=== PATIENT | male | born 1975 | race Caucasian/White ===

== ENCOUNTER 2022-05-22 23:05 | Emergency (ER) | payer OTHER ==
[2022-05-22] MEDS ORDERED: hydrALAZINE 10 MG Tab PO STA (23:49)
[2022-05-22 23:52] LABS: ESTIMATED GFR 83 mL/min (>60); TROPONIN I HIGH SENSITIVITY 7.1 pg/mL (<=60.3)
[2022-05-23] MEDS ORDERED: hydrALAZINE 10 MG Tab PO STA (00:46)
[2022-05-23] MEDS ORDERED: Alum Hydrox/Mag Hydrox/Simeth 15 ML, Lidocaine 2% 15 ML PO ONE ×2 (00:50)
== END 2022-05-23 01:27 ==
LOC: JP.ED 23:05
DX: R91.1 Solitary pulmonary nodule (principal); R10.13 Epigastric pain; I10 Essential (primary) hypertension
CPT/HCPCS: 36415; 71046; 80053; 84484; 85025; 85379; 86140; 93005; 99285; A9270

== ENCOUNTER 2022-05-30 19:40 | Emergency (ER) | payer OTHER ==
[2022-05-30] MEDS ORDERED: hydrALAZINE 20 MG/ML SDV IVPUSH ONE (20:54)
[2022-05-30 21:32] LABS: ESTIMATED GFR 93 mL/min (>60); TROPONIN I HIGH SENSITIVITY 4.1 pg/mL (<=60.3)
== END 2022-05-30 23:21 ==
LOC: JP.ED 19:40
DX: G44.52 New daily persistent headache (NDPH) (principal); I10 Essential (primary) hypertension; Z79.899 Other long term (current) drug therapy; Z87.891 Personal history of nicotine dependence
CPT/HCPCS: 36415; 80053; 80305; 81001; 84484; 85025; 96374; 99284; J0360

== ENCOUNTER 2022-07-10 04:14 | Emergency (ER) | payer OTHER ==
[2022-07-10] MEDS ORDERED: Metoprolol Tartrate 50 MG Tab PO ONE (05:02)
[2022-07-10 05:39] LABS: ESTIMATED GFR 93 mL/min (>60)
== END 2022-07-10 06:30 | disposition home or self-care (01) ==
LOC: JP.ED 04:14
DX: I10 Essential (primary) hypertension (principal); Z79.899 Other long term (current) drug therapy
CPT/HCPCS: 36415; 70450; 80053; 85025; 99284; A9270

== ENCOUNTER 2023-08-04 16:27 | Emergency (ER) | payer OTHER ==
[2023-08-04] MEDS ORDERED: Ketorolac 15 MG/ML SDV IVPUSH ONE (18:02)
[2023-08-04] MEDS ORDERED: Sodium Chloride 0.9% 10 ML Syringe FLUSH PRN (18:02)
[2023-08-04 18:12] LABS: BASOPHILS ABSOLUTE AUTO 0.04 K/uL (0.00-0.10); BASOPHILS PERCENT AUTO 0.3 % (0.1-1.3); EOSINOPHILS ABSOLUTE AUTO 0.18 K/uL (0.00-0.40); EOSINOPHILS PERCENT AUTO 1.1 % (0.0-5.4); HEMATOCRIT 48.8 % (38.4-49.7); HEMOGLOBIN 17.5 g/dL (12.9-16.9); IMMATURE GRAN ABSOLUTE AUTO 0.04 K/uL (0.00-0.23); IMMATURE GRAN PERCENT AUTO 0.3 % (0.0-0.7); LYMPHOCYTES ABSOLUTE AUTO 2.02 K/uL (0.8-3.3); LYMPHOCYTES PERCENT AUTO 12.7 % (11.4-47.7); MEAN CORPUSCULAR HEMOGLOBIN 31.4 pg (31.6-35.5); MEAN CORPUSCULAR HGB CONC 35.9 g/dL (31.6-35.5); MEAN CORPUSCULAR VOLUME 87.5 fL (81.4-99.0); MONOCYTES ABSOLUTE AUTO 1.35 K/uL (0.20-0.90); MONOCYTES PERCENT AUTO 8.5 % (3.3-12.6); NEUTROPHILS ABSOLUTE AUTO 12.28 K/uL (1.0-7.6); NEUTROPHILS PERCENT AUTO 77.1 % (40.0-78.1); PLATELET COUNT,PLT 196 K/uL (130-375); RED BLOOD CELL COUNT 5.58 M/uL (4.14-5.76); WHITE BLOOD CELL COUNT,WBC 15.9 K/uL (3.2-11.0)
[2023-08-04 18:36] LABS: A/G RATIO 1.1 (1.2-2.2); ALANINE AMINOTRANSFERASE,ALT 27 U/L (12-78); ALKALINE PHOSPHATASE 60 U/L (46-116); ANION GAP 9.7 mmol/L (5.0-14.0); ASPARTATE AMNIOTRANSFERASE,AST 18 U/L (15-37); BILIRUBIN TOTAL 0.7 mg/dL (0.2-1.0); BLOOD UREA NITROGEN,BUN 20 mg/dL (7-18); C-REACTIVE PROTEIN 0.07 mg/dL (0.0-0.3); CALCIUM 9.1 mg/dL (8.5-10.1); CARBON DIOXIDE,CO2 27 mmol/L (21-32); CHLORIDE,CL 103 mmol/L (100-108); CREATININE 0.9 mg/dL (0.8-1.3); EST CRCL DRUG DOSING (CG) 115.44 mL/min; ESTIMATED GFR 105 mL/min (>60); GLUCOSE RANDOM 115 mg/dL (74-106); POTASSIUM,K 3.7 mmol/L (3.6-5.2); PROTEIN TOTAL,TP 7.6 g/dL (6.4-8.2); SODIUM,NA 140 mmol/L (140-148); TROPONIN I HIGH SENSITIVITY < 4.0 pg/mL (<=60.3)
[2023-08-04 18:51] LABS: APPEARANCE,URINE CLEAR (CLEAR); BILIRUBIN,URINE NEGATIVE (NEGATIVE); COLOR,URINE YELLOW (YELLOW); GLUCOSE,URINE NEGATIVE (NEGATIVE); KETONES,URINE NEGATIVE (NEGATIVE); LEUKOCYTE ESTERASE,URINE NEGATIVE (NEGATIVE); NITRITE,URINE NEGATIVE (NEGATIVE); OCCULT BLOOD,URINE NEGATIVE (NEGATIVE); PH,URINE 8.5 (5.0-8.0); PROTEIN,URINE NEGATIVE (NEGATIVE); UROBILINOGEN,URINE 0.2 EU/dL (0.2-1.0)
[2023-08-04 18:56] LABS: AMORPHOUS SEDIMENT,URINE NOT SEEN; BACTERIA,URINE RARE; EPITHELIAL CELLS,URINE RARE; MUCUS,URINE NOT SEEN; RBC,URINE NOT SEEN (0-5); WBC,URINE NOT SEEN (0-5)
[2023-08-04] MEDS ORDERED: Iopamidol 612 MG/ML 100 ML Bottle IV SCH (19:15)
[2023-08-04] MEDS ORDERED: Sodium Chloride 0.9% 50 ML IV SCH (19:15)
== END 2023-08-04 20:30 ==
LOC: JP.ED 16:27
DX: R07.89 Other chest pain (principal); K59.00 Constipation, unspecified; I10 Essential (primary) hypertension; Z79.899 Other long term (current) drug therapy
CPT/HCPCS: 36415; 71046; 71046-26; 74177; 74177-26; 80053; 81001; 84484; 85025; 86140; 93005; 93010; 96374; 99284; 99285-25; J1885; J3490; Q9967